=== PATIENT | male | born 1950 | race Caucasian/White ===

== ENCOUNTER 2020-04-27 15:31 | Inpatient (IN) ==
[2020-04-27] MEDS ORDERED: ZOFRAN INJ 4 MG VIAL IVP ONE (15:48)
[2020-04-27] MEDS ORDERED: ZOFRAN INJ 4 MG VIAL ONE (16:07)
[2020-04-27 16:41] LABS: BASOPHILS # (AUTO) 0.1 X10^3/uL (0.0-0.1); BASOPHILS % (AUTO) 0.8 % (0.2-1.0); EOSINOPHILS # (AUTO) 0.1 x10^3/uL (0.0-0.2); EOSINOPHILS % (AUTO) 1.4 % (0.9-2.9); HEMATOCRIT 31.1 % (42.0-54.0); HEMOGLOBIN 10.6 g/dL (13.5-18.0); LYMPHOCYTES # (AUTO) 0.8 X10^3/uL (1.3-2.9); LYMPHOCYTES % (AUTO) 11.3 % (21.0-51.0); MEAN CORPUSCULAR HEMOGLOBIN 28.1 pg (27.0-34.0); MEAN CORPUSCULAR HGB CONC 34.2 g/dL (33.0-35.0); MEAN CORPUSCULAR VOLUME 82.2 fL (80.0-100.0); MEAN PLATELET VOLUME 9.1 fL (7.4-11.0); MONOCYTES # (AUTO) 1.3 x10^3/uL (0.3-0.8); MONOCYTES % (AUTO) 19.5 % (0.0-13.0); NEUTROPHILS # (AUTO) 4.5 x10^3/uL (2.2-4.8); PLATELET COUNT 199 X10^3/uL (150.0-450.0); RED BLOOD COUNT 3.78 X10^6/uL (4.7-6.0); WHITE BLOOD COUNT 6.8 X10^3/uL (3.6-10.0)
[2020-04-27 16:59] LABS: LACTIC ACID 1.1 mmol/L (0.4-2.0)
[2020-04-27 17:01] LABS: ALANINE AMINOTRANSFERASE 40 Units/L (12-78); ALBUMIN 2.9 g/dL (3.4-5.0); ALKALINE PHOSPHATASE 80 Units/L (46-116); ASPARTATE AMINO TRANSFERASE 55 Units/L (15-37); BLOOD UREA NITROGEN 12 mg/dL (7-18); CALCIUM 8.7 mg/dL (8.5-10.1); CARBON DIOXIDE 28.3 mmol/L (21-32); CHLORIDE 82 mmol/L (98-107); CKMB % 1.4 % (<4); COR CA(FOR HYPOALB) 9.6 mg/dL (8.5-10.1); CREATINE KINASE 71 Units/L (39-308); CREATINE KINASE MB < 1.0 ng/mL (0-4.0); CREATININE 0.82 mg/dL (0.70-1.30); LIPASE 65 Units/L (73-393); MAGNESIUM 1.5 mg/dL (1.7-2.9); TOTAL PROTEIN 6.9 g/dL (6.4-8.2); TROPONIN I < 0.02 ng/mL (0-1.5); eGFR NON BLACK RACES > 60 (>60)
[2020-04-27 17:16] LABS: SODIUM 115 mmol/L (136-145)
[2020-04-27] MEDS ORDERED: MAGNESIUM SULFATE 1 GRAM/100 mL PREMIX 1 G/100 ML BAG IV ONE ×2 (17:49→17:59)
[2020-04-27] MEDS ORDERED: NS 1000 ML 1,000 ML ONE (17:58)
[2020-04-27] MEDS: NS 1000 ML 1,000 ML IV SCH (18:09)
--- NOTE | 2020-04-27 19:42 | DR.DIZZY ---
HPI Time seen Time Seen by Provider: 04/27/20 15:48 PCP Primary Care Physician: ANGELA HPI Comment HPI Comment: 3 days of weakness, nausea, and vomiting. Fell this AM on his right side, denies any pain. Denies any fever, chills, SHOB, cough, diarrhea, or any chest or abdominal pain. Complaint Chief Complaint:: PATIENT WAS BROUGHT INTO ED VIA [facility]. EMS STATED THAT THEY WAS CALLED OUT TO PATIENT DUE TO FALL AND WEAKNESS. PATIENT STATES THAT HE HAS HAD WEAKNESS X3 DAYS HAS HAD SOME N/V. PATIENT STATES THAT HE GOT UP FROM TABLE AND TRIPPED AND FELL. COVID-19 Coronavirus risk:travel/contact w/high risk person: No Has patient experienced Coronavirus symptoms: No Source History Provided: Patient Mode of Arrival Mode of Arrival: EMS Timing Onset of Chief Complaint: 04/27/20 Context Stroke Symptoms: None PMH PMH Past Medical History: Yes Past Medical History: Hypertension Past Medical History Comment: AFIB Past Surgical History: No Family History History of Family Medical Conditions: No Social History Alcohol Use: None Do you use any recreational Drugs:: No Travel Risk Coronavirus risk:travel/contact w/high risk person: No Has patient experienced Coronavirus symptoms: No Infectious screening Have you traveled outside the country in the last 6 months?: No Isolation: Standard ROS Review of Systems Constitutional: See HPI Eyes: No Symptoms Reported ENTM: No Symptoms Reported Respiratoy: No Symptoms Reported Cardiovascular: No Symptoms Reported Gastrointestinal/Abdominal: See HPI Genitourinary: No Symptoms Reported Neurological: No Symptoms Reported Musculoskeletal: No Symptoms Reported Integumentary: No Symptoms Reported Hematologic/Lymphatic: No Symptoms Reported Endocrine: No Symptoms Reported Psychiatric: No Symptoms Reported All Other Systems: Reviewed and Negative PE Vital Signs Vitals: Temperature 97.2 F Pulse Rate 67 Respiratory Rate 21 Blood Pressure 127/60 O2 Sat by Pulse Oximetry 97 General Limitations: No Limitations General Appearance: Alert and In No Apparent Distress Head Head Exam: Normal Inspection and Atraumatic Eyes Eye exam: Normal Appearance and PERRL ENT ENT Exam: Normal Exam, Normal Oropharynx and Normal External Ear Exam Neck Neck Exam: Normal Inspection and Full ROM; negative Tenderness Chest Chest Inspection: Normal Inspection Respiratory Respiratory Exam: Normal Lung Sounds Bilat Cardiovascular Cardiovascular Exam: Regular Rate and Normal Rhythm Abdominal Exam Abdominal Exam: Normal Inspection and Soft; negative Distention, Tenderness, Guarding, Rebound and Rigidity Rectal Rectal Exam: Deferred Extremeties Extremities Exam: Normal Inspection and Full ROM; negative Tenderness, Edema and Joint Swelling Back Back Exam: Normal Inspection and Full ROM Neurologic Neurological Exam: Alert, Oriented X3 and CN II-XII Intact; negative Motor Sensory Deficit Psychiatric Psychiatric Exam: Normal Affect and Normal Mood Skin Skin Exam: Warm, Dry, Intact and Normal Color COURSE Treatment Treatment: Rehydration/initial Na+ replacement resulted in some subjective weakness improvement. Findings concerning for severe hyponatremia, as well as hypomagnesemia. Hyperbilirubinemia nominal. Discussed case with Dr. Askew who agreed to admit. Reevaluation 1st: Improved ROR Labs Reviewed Laboratory Results Reviewed?: Yes Result Diagrams: 04/27/20 16:10 04/27/20 16:10 Laboratory: WBC 6.8 X10^3/uL (3.6-10.0) 04/27/20 16:10 RBC 3.78 X10^6/uL (4.7-6.0) L 04/27/20 16:10 Hgb 10.6 g/dL (13.5-18.0) L 04/27/20 16:10 Hct 31.1 % (42.0-54.0) L 04/27/20 16:10 MCV 82.2 fL (80.0-100.0) 04/27/20 16:10 MCH 28.1 pg (27.0-34.0) 04/27/20 16:10 MCHC 34.2 g/dL (33.0-35.0) 04/27/20 16:10 RDW 16.0 % (11.6-16.5) 04/27/20 16:10 Plt Count 199 X10^3/uL (150.0-450.0) 04/27/20 16:10 MPV 9.1 fL (7.4-11.0) 04/27/20 16:10 Neut % (Auto) 67.0 % (42.0-75.0) 04/27/20 16:10 Lymph % (Auto) 11.3 % (21.0-51.0) L 04/27/20 16:10 [place] % (Auto) 19.5 % (0.0-13.0) H 04/27/20 16:10 Eos % (Auto) 1.4 % (0.9-2.9) 04/27/20 16:10 Baso % (Auto) 0.8 % (0.2-1.0) 04/27/20 16:10 Neut # (Auto) 4.5 x10^3/uL (2.2-4.8) 04/27/20 16:10 Lymph # (Auto) 0.8 X10^3/uL (1.3-2.9) L 04/27/20 16:10 [place] # (Auto) 1.3 x10^3/uL (0.3-0.8) H 04/27/20 16:10 Eos # (Auto) 0.1 x10^3/uL (0.0-0.2) 04/27/20 16:10 Baso # (Auto) 0.1 X10^3/uL (0.0-0.1) 04/27/20 16:10 Absolute Nucleated RBC 0.0 /100WBC 04/27/20 16:10 Sodium 115 mmol/L (136-145) L* 04/27/20 16:10 Corrected Sodium TNP 04/27/20 16:10 Potassium 3.8 mmol/L (3.5-5.1) 04/27/20 16:10 Chloride 82 mmol/L (98-107) L 04/27/20 16:10 Carbon Dioxide 28.3 mmol/L (21-32) 04/27/20 16:10 BUN 12 mg/dL (7-18) 04/27/20 16:10 Creatinine 0.82 mg/dL (0.70-1.30) 04/27/20 16:10 Est GFR (MDRD) Af Amer > 60 (>60) 04/27/20 16:10 Est GFR (MDRD) Non-Af > 60 (>60) 04/27/20 16:10 Glucose 98 mg/dL (65-99) 04/27/20 16:10 Lactic Acid 1.1 mmol/L (0.4-2.0) 04/27/20 16:10 Calcium 8.7 mg/dL (8.5-10.1) 04/27/20 16:10 Corrected Calcium 9.6 mg/dL (8.5-10.1) 04/27/20 16:10 Magnesium 1.5 mg/dL (1.7-2.9) L 04/27/20 16:10 Total Bilirubin 1.10 mg/dL (0.2-1.0) H 04/27/20 16:10 AST 55 Units/L (15-37) H 04/27/20 16:10 ALT 40 Units/L (12-78) 04/27/20 16:10 Alkaline Phosphatase 80 Units/L (46-116) 04/27/20 16:10 Creatine Kinase 71 Units/L (39-308) 04/27/20 16:10 CK-MB (CK-2) < 1.0 ng/mL (0-4.0) 04/27/20 16:10 CK/CKMB % Calc 1.4 % (<4) 04/27/20 16:10 Troponin I < 0.02 ng/mL (0-1.5) 04/27/20 16:10 Total Protein 6.9 g/dL (6.4-8.2) 04/27/20 16:10 Albumin 2.9 g/dL (3.4-5.0) L 04/27/20 16:10 Globulin 4.0 g/dL (2.5-4.5) 04/27/20 16:10 Albumin/Globulin Ratio 0.7 Ratio (1.1-2.1) L 04/27/20 16:10 Lipase 65 Units/L (73-393) L 04/27/20 16:10 SARS-CoV-2 (PCR) Negative (NEGATIVE) 04/27/20 18:25 EKG [place]: Normal Rhythm: NSR Block: None Hypertrophy: None ST: Normal Opioid Opioid Risk Tool Age (Michael box if 16-45): No Total: 0 Total Score Risk Category: Low Risk Copyright: Rhodes LR predicting aberrant behaviors Diagnosis Discharge Problem: Acute hyponatremia, Hypomagnesemia, Weakness
[2020-04-27 21:00] VITALS: BMI 30.4
[2020-04-27] MEDS ORDERED: ZOFRAN INJ 4 MG VIAL IVP PRN (21:26)
[2020-04-27] MEDS ORDERED: NS 1000 ML 1,000 ML IV SCH (21:26)
[2020-04-27] MEDS ORDERED: ZYLOPRIM PO SCH (21:26)
[2020-04-27] MEDS: COREG TAB 12.5 MG PO SCH (22:51)
[2020-04-27] MEDS: ELIQUIS PO SCH (22:52)
[2020-04-28] MEDS: NS 1000 ML 1,000 ML IV SCH ×3 (02:23→18:03)
[2020-04-28 06:15] LABS: BASOPHILS # (AUTO) 0.1 X10^3/uL (0.0-0.1); BASOPHILS % (AUTO) 1.3 % (0.2-1.0); EOSINOPHILS # (AUTO) 0.1 x10^3/uL (0.0-0.2); EOSINOPHILS % (AUTO) 1.9 % (0.9-2.9); HEMATOCRIT 29.2 % (42.0-54.0); HEMOGLOBIN 10.2 g/dL (13.5-18.0); LYMPHOCYTES # (AUTO) 0.8 X10^3/uL (1.3-2.9); LYMPHOCYTES % (AUTO) 14.4 % (21.0-51.0); MEAN CORPUSCULAR HEMOGLOBIN 28.6 pg (27.0-34.0); MEAN CORPUSCULAR HGB CONC 35.1 g/dL (33.0-35.0); MEAN CORPUSCULAR VOLUME 81.5 fL (80.0-100.0); MEAN PLATELET VOLUME 8.8 fL (7.4-11.0); MONOCYTES # (AUTO) 1.1 x10^3/uL (0.3-0.8); MONOCYTES % (AUTO) 20.4 % (0.0-13.0); NEUTROPHILS # (AUTO) 3.4 x10^3/uL (2.2-4.8); PLATELET COUNT 175 X10^3/uL (150.0-450.0); RED BLOOD COUNT 3.58 X10^6/uL (4.7-6.0); RED CELL DISTRIBUTION WIDTH 16.4 % (11.6-16.5); WHITE BLOOD COUNT 5.5 X10^3/uL (3.6-10.0)
[2020-04-28 06:43] LABS: BAND NEUTROPHILS % 1 % (0-10)
[2020-04-28 06:44] LABS: PLATELET MORPHOLOGY COMMENT NORMAL (NORMAL)
[2020-04-28 06:45] LABS: ALANINE AMINOTRANSFERASE 35 Units/L (12-78); ALBUMIN 2.6 g/dL (3.4-5.0); ALKALINE PHOSPHATASE 72 Units/L (46-116); ASPARTATE AMINO TRANSFERASE 42 Units/L (15-37); BLOOD UREA NITROGEN 7 mg/dL (7-18); CALCIUM 8.2 mg/dL (8.5-10.1); CARBON DIOXIDE 27.1 mmol/L (21-32); CHLORIDE 86 mmol/L (98-107); COR CA(FOR HYPOALB) 9.3 mg/dL (8.5-10.1); CREATININE 0.65 mg/dL (0.70-1.30); MAGNESIUM 1.6 mg/dL (1.7-2.9); PHOSPHORUS 3.5 mg/dL (2.6-4.7); TOTAL PROTEIN 6.3 g/dL (6.4-8.2); eGFR NON BLACK RACES > 60 (>60)
[2020-04-28 06:48] LABS: SODIUM 118 mmol/L (136-145)
[2020-04-28] MEDS ORDERED: POTASSIUM CHL 60 MEQ/NS 0.45% 500 ML IV PRN (08:46)
[2020-04-28] MEDS ORDERED: MICRO K EXTEN CAP 10 MEQ PO PRN (08:46)
[2020-04-28] MEDS ORDERED: KLOR-CON PO PRN (08:46)
[2020-04-28] MEDS ORDERED: POTASSIUM CHL 40 MEQ/NS 0.45% 500 ML IV PRN (08:46)
[2020-04-28] MEDS ORDERED: K-RIDER 10 MEQ/NS 100 ML 10 MEQ/100 ML BAG IV PRN (08:46)
[2020-04-28] MEDS ORDERED: POTASSIUM CHLORIDE LIQ 20 MEQ UDC PO PRN (08:46)
[2020-04-28] MEDS ORDERED: CHLORTHALIDONE PO SCH (09:00)
[2020-04-28] MEDS: ELIQUIS PO SCH ×2 (09:31→21:09)
[2020-04-28] MEDS: ZYLOPRIM PO SCH (09:31)
[2020-04-28] MEDS: SYNTHROID 75 mcg TAB PO SCH (09:31)
[2020-04-28] MEDS: COREG TAB 12.5 MG PO SCH ×2 (09:32→21:08)
[2020-04-28] MEDS: K-DUR TAB 20 MEQ PO PRN ×2 (09:32→18:08)
--- NOTE | 2020-04-28 10:30 | DR.H&P ---
H&P - History & Physical for Day of: H&P Date: 04/28/20 - Chief Complaint Chief Complaint: WEAKNESS, NAUSEA, VOMITING, FREQUENT FALLS - History of Present Illness History of Present Illness: IS A 69 YEAR OLD WHITE MALE WHO PRESENTED TO THE ER WITH COMPLAINTS OF FREQUENT FALLS AT HOME AND WEAKENSS. PATEINT REPORTS THAT HE HAS HAD WEAKNESS, NAUSEA, AND VOMITING X 3 DAYS. HE REPORTS FALLING AT HOME THIS MORNING AND LANDING ON HIS RIGHT SIDE. HE DENIES LOSS OF CONSCIOUSNESS. HE DENIES PAIN. PMH INCLUDES HTN AND ARIAL FIBRILLATION. ON ARRIVAL TO THE HOSPITAL, VITALS WERE 98.7-79-18-98%-103/57. LABS WERE OBTAINED. ABNORMAL LAB VALUES INCLUDE THE FOLLOWING: RBC 3.78, HGB 10.6, HCT 31.1, SODIUM 115, CHLORIDE 82, MAGNESIUM 1.5, TOTAL BILI 1.10, AST 55, ALBUMIN 2.9. AM LABS REVEALED SODIUM 118, POTASSIUM 2.9. COVID-19 NEGATIVE. EKG REVEALED: ATRIAL FIBRILLATION WITH HR 62. HE WAS GIVEN ZOFRAN 4MG IV X 1 AND MAGNESIUM 1G IV X 1 IN THE ER. HE WAS ADMITTED FOR FURTHER EVALUATION AND TREATMENT OF SEVERE HYPONATREMIA, NYPOMAGNESEMIA, AND HYPOKALEMIA. HE WAS STARTED ON NORMAL SALINE AT 125M,L/HR, THE POTASSIUM AND MAGNESIUM PROTOCOLS, ZOFRAN 4MG IV Q6H PRN, SYNTHROID 75MCG PO DAILY, COREG 12.5MG PO BID, ELIQUIS 5MG PO BID, AND AL LOPURINOL 300MG PO DAILY. OTHERWISE, WE PLAN TO FOLLOW UP WITH AM LABS AND CONTINUE TO MONITOR. - Past Medical History Past Medical History: Hypertension Additional Medical History: A-FIB - Past Surgical History Surgical History: Ortho Surgery - Social History Alcohol Use: None Drug Use: None - Medications Home Medications: No Known Drug Allergies Allergy (Verified 04/27/20 16:14) CONTINUE taking the following medications allopurinol 300 mg PO BID 04/27/20 [History] apixaban [Eliquis] 5 mg PO BID 04/27/20 [History] carvedilol 12.5 mg PO BID 04/27/20 [History] chlorthalidone 25 mg PO DAILY 04/27/20 [History] levothyroxine [Euthyrox] 75 mcg PO DAILY 04/27/20 [History] meloxicam 15 mg PO DAILY 04/27/20 [History] - Review of Systems Constitutional: Weakness Eyes: No Symptoms Reported ENT: No Symptoms Reported Respiratory: No Symptoms Reported Cardiovascular: Light Headedness Gastrointestinal: See HPI, Nausea, Vomiting, Abdominal Pain Genitourinary: No Symptoms Reported Musculoskeletal: No Symptoms Reported Skin: No Symptoms Reported Neurological: Weakness - Physical Exam Vital Signs: Temperature 98.7 F Pulse Rate [Apical] 56 Pulse Rate 67 Respiratory Rate 20 Blood Pressure [Right Arm] 107/60 Blood Pressure 127/60 O2 Sat by Pulse Oximetry 97 Oriented: Normal Eyes: Normal Ear: Normal Nose: Normal Throat: Normal Respiratory: Diminished Throughout Cardiovascular: Normal : Normal Auscultation: Bowel Sounds: Normal Palpation: Normal Tenderness: Normal Skin: Normal Musculoskeletal: Normal Psychiatric: Normal Mood Description: Calm Affect: Normal Speech Pattern: Clear - Assessment/Plan (1) Acute hyponatremia Status: Acute Plan: ADMIT, NORMAL SALINE AT 125ML/HR, THE POTASSIUM AND MAGNESIUM PROTOCOLS, ZOFRAN 4MG IV Q6H PRN, SYNTHROID 75MCG PO DAILY, COREG 12.5MG PO BID, ELIQUIS 5MG PO BID, AND ALLOPURINOL 300MG PO DAILY. (2) Hypokalemia Status: Acute (3) Hypomagnesemia Status: Acute (4) Weakness Status: Acute - Allergies Allergies/Adverse Reactions: Allergies Allergy/AdvReac Type Severity Reaction Status Date / Time No Known Drug Allergies Allergy Verified 04/27/20 16:14
[2020-04-28] MEDS: MAGNESIUM SULFATE 1 GRAM/100 mL PREMIX 1 GM/100 ML BAG IV PRN ×2 (18:08→21:09)
[2020-04-29] MEDS: NS 1000 ML 1,000 ML IV SCH ×5 (01:30→19:00)
[2020-04-29 06:10] LABS: BASOPHILS % (AUTO) 0.9 % (0.2-1.0); EOSINOPHILS # (AUTO) 0.1 x10^3/uL (0.0-0.2); EOSINOPHILS % (AUTO) 1.5 % (0.9-2.9); HEMATOCRIT 29.1 % (42.0-54.0); LYMPHOCYTES # (AUTO) 0.8 X10^3/uL (1.3-2.9); LYMPHOCYTES % (AUTO) 14.3 % (21.0-51.0); MEAN CORPUSCULAR HEMOGLOBIN 28.6 pg (27.0-34.0); MEAN CORPUSCULAR HGB CONC 34.5 g/dL (33.0-35.0); MEAN CORPUSCULAR VOLUME 82.9 fL (80.0-100.0); MEAN PLATELET VOLUME 9.2 fL (7.4-11.0); MONOCYTES # (AUTO) 1.3 x10^3/uL (0.3-0.8); MONOCYTES % (AUTO) 24.3 % (0.0-13.0); NEUTROPHILS # (AUTO) 3.2 x10^3/uL (2.2-4.8); PLATELET COUNT 167 X10^3/uL (150.0-450.0); RED BLOOD COUNT 3.51 X10^6/uL (4.7-6.0); RED CELL DISTRIBUTION WIDTH 16.3 % (11.6-16.5); WHITE BLOOD COUNT 5.4 X10^3/uL (3.6-10.0)
[2020-04-29 06:25] LABS: ALANINE AMINOTRANSFERASE 46 Units/L (12-78); ALBUMIN 2.4 g/dL (3.4-5.0); ALKALINE PHOSPHATASE 73 Units/L (46-116); ASPARTATE AMINO TRANSFERASE 54 Units/L (15-37); BLOOD UREA NITROGEN 8 mg/dL (7-18); CARBON DIOXIDE 26.5 mmol/L (21-32); CHLORIDE 93 mmol/L (98-107); COR CA(FOR HYPOALB) 9.3 mg/dL (8.5-10.1); CREATININE 0.62 mg/dL (0.70-1.30); MAGNESIUM 1.7 mg/dL (1.7-2.9); eGFR NON BLACK RACES > 60 (>60)
[2020-04-29 06:27] LABS: SODIUM 124 mmol/L (136-145)
[2020-04-29 06:41] LABS: PLATELET MORPHOLOGY COMMENT NORMAL (NORMAL)
[2020-04-29] MEDS: SYNTHROID 75 mcg TAB PO SCH (09:13)
[2020-04-29] MEDS: ELIQUIS PO SCH ×2 (09:13→20:47)
[2020-04-29] MEDS: ZYLOPRIM PO SCH (09:14)
[2020-04-29] MEDS: COREG TAB 12.5 MG PO SCH ×2 (09:14→20:48)
[2020-04-29] MEDS: MAGNESIUM SULFATE 1 GRAM/100 mL PREMIX 1 GM/100 ML BAG IV PRN (10:50)
[2020-04-29] MEDS: COLACE CAP 100 MG PO SCH ×2 (10:50→20:47)
[2020-04-29] MEDS: MILK OF MAGNESIA PO SCH ×4 (10:50→21:00)
[2020-04-30] MEDS: NS 1000 ML 1,000 ML IV SCH ×4 (02:38→22:10)
[2020-04-30 06:08] LABS: BASOPHILS # (AUTO) 0.1 X10^3/uL (0.0-0.1); BASOPHILS % (AUTO) 0.9 % (0.2-1.0); EOSINOPHILS # (AUTO) 0.1 x10^3/uL (0.0-0.2); EOSINOPHILS % (AUTO) 1.7 % (0.9-2.9); HEMATOCRIT 27.8 % (42.0-54.0); HEMOGLOBIN 9.5 g/dL (13.5-18.0); LYMPHOCYTES # (AUTO) 0.8 X10^3/uL (1.3-2.9); LYMPHOCYTES % (AUTO) 14.1 % (21.0-51.0); MEAN CORPUSCULAR HEMOGLOBIN 28.3 pg (27.0-34.0); MEAN CORPUSCULAR HGB CONC 34.1 g/dL (33.0-35.0); MEAN CORPUSCULAR VOLUME 82.9 fL (80.0-100.0); MEAN PLATELET VOLUME 8.9 fL (7.4-11.0); MONOCYTES # (AUTO) 1.3 x10^3/uL (0.3-0.8); MONOCYTES % (AUTO) 21.2 % (0.0-13.0); NEUTROPHILS # (AUTO) 3.7 x10^3/uL (2.2-4.8); NEUTROPHILS % (AUTO) 62.1 % (42.0-75.0); PLATELET COUNT 158 X10^3/uL (150.0-450.0); RED BLOOD COUNT 3.36 X10^6/uL (4.7-6.0); RED CELL DISTRIBUTION WIDTH 16.7 % (11.6-16.5)
[2020-04-30 06:29] LABS: ALANINE AMINOTRANSFERASE 46 Units/L (12-78); ALBUMIN 2.4 g/dL (3.4-5.0); ALKALINE PHOSPHATASE 69 Units/L (46-116); ASPARTATE AMINO TRANSFERASE 54 Units/L (15-37); BLOOD UREA NITROGEN 8 mg/dL (7-18); CARBON DIOXIDE 26.6 mmol/L (21-32); CHLORIDE 92 mmol/L (98-107); COR CA(FOR HYPOALB) 9.3 mg/dL (8.5-10.1); CREATININE 0.65 mg/dL (0.70-1.30); MAGNESIUM 1.7 mg/dL (1.7-2.9); TOTAL PROTEIN 5.9 g/dL (6.4-8.2); eGFR NON BLACK RACES > 60 (>60)
[2020-04-30 06:32] LABS: SODIUM 123 mmol/L (136-145)
[2020-04-30 06:33] LABS: PLATELET MORPHOLOGY COMMENT NORMAL (NORMAL)
[2020-04-30] MEDS: MAGNESIUM SULFATE 1 GRAM/100 mL PREMIX 1 GM/100 ML BAG IV PRN (09:27)
[2020-04-30] MEDS: ELIQUIS PO SCH ×2 (09:28→21:56)
[2020-04-30] MEDS: COLACE CAP 100 MG PO SCH ×2 (09:28→21:54)
[2020-04-30] MEDS: COREG TAB 12.5 MG PO SCH ×2 (09:28→21:55)
[2020-04-30] MEDS: SYNTHROID 75 mcg TAB PO SCH (09:28)
[2020-04-30] MEDS: ZYLOPRIM PO SCH (09:29)
[2020-04-30] MEDS: MILK OF MAGNESIA PO SCH ×3 (09:30→21:56)
[2020-04-30] MEDS ORDERED: NS 1000 ML 1,000 ML IV ONE (10:33)
--- NOTE | 2020-04-30 20:49 | PCM.PROG ---
Progress Note - Progress Note for Day of Date of Exam: 04/29/20 - Subjective Subjective: IS BEING TREATED FOR ACUTE HYPONATREMIA, HYPOKALEMIA, HYPOMAGNESEMIA, AND WEAKNESS. TODAY, HE IS ALERT AND ORIENTED, LYING IN BED ON MORNING ROUNDS. HE CONTINUES WITH COMPLAINTS OF WEAKNESS TODAY, BUT REPORTS SLIGHT IMPROVEMENT. HE DENIES A BOWEL MOVEMENT IN SEVERAL DAYS. ON EXAMINATION, HEART IS REGULAR IN RATE AND RHYTHM. BILATERAL LUNGS ARE NOTED WITH DIMINISHED LUNG SOUNDS THROUGHOUT. ABDOMEN IS ROUND, SOFT, AND NON-TENDER WITH NORMAL BOWEL SOUNDS NOTED IN ALL QUADRANTS. HIS VITALS THIS MORNING ARE: 97.8-76-20-96%-123/58. LABS WERE OBTAINED. ABNORMAL LAB VALUES INCLUDE THE FOLLOWING: RBC 3.51, HGB 10.0, HCT 29.1, SODIUM 124, CHLORIDE 93, CREATININE 0.62, CALCIUM 8.0, AST 54, TOTAL PROTEIN 6.0, ALBUMIN 2.4. HE IS CURRENTLY RECEIVING NORMAL SALINE AT 125ML/HR, THE POTASSIUM AND MAGNESIUM PROTOCOLS, ZOFRAN 4MG IV Q6H PRN, SYNTHROID 75MCG PO DAILY, COREG 12.5MG PO BID, ELIQUIS 5MG PO BID, AND ALLOPURINOL 300MG PO DAILY. WE WILL CONTINUE WITH CURRENT PLAN OF CARE TODAY. OTHERWISE, WE PLAN TO FOLLOW UP WITH AM LABS AND CONTINUE TO MONITOR. - Past Medical Family Social History Past Med/Fam/Surg Hx: No changes since H&P Allergies: Allergies No Known Drug Allergies Allergy (Verified 04/27/20 16:14) - Review of Systems ROS: No change since H&P - Vital Signs and I&O's Vital Signs: Temperature 98.6 F Pulse Rate [Apical] 74 Pulse Rate 67 Respiratory Rate 20 Blood Pressure [Right Arm] 127/60 Blood Pressure 127/60 O2 Sat by Pulse Oximetry 97 Intake and Output: Intake & Output 04/28/20 04/29/20 04/30/20 05/01/20 11:59 11:59 11:59 11:59 Intake Total 1371 / 1371 3425 / 3425 4993 / 4993 720 / 720 Output Total 1650 / 1650 3325 / 3325 3175 / 3175 1150 / 1150 Balance -279 / -279 100 / 100 1818 / 1818 -430 / -430 - Physical Exam Oriented: Normal Eyes: Normal Ear: Normal Nose: Normal Throat: Normal Respiratory: Generalized, Diminished Cardiovascular: Normal : Normal Auscultation: Bowel Sounds: Normal Palpation: Normal Tenderness: Normal Skin: Normal Musculoskeletal: Normal Psychiatric: Normal Mood Description: Calm Affect: Normal Speech Pattern: Clear, Appropriate - Laboratory and Diagnostics Result Diagrams: 04/30/20 05:05 04/30/20 05:05 Labs: Laboratory WBC 6.0 X10^3/uL (3.6-10.0) 04/30/20 05:05 RBC 3.36 X10^6/uL (4.7-6.0) L 04/30/20 05:05 Hgb 9.5 g/dL (13.5-18.0) L 04/30/20 05:05 Hct 27.8 % (42.0-54.0) L 04/30/20 05:05 MCV 82.9 fL (80.0-100.0) 04/30/20 05:05 MCH 28.3 pg (27.0-34.0) 04/30/20 05:05 MCHC 34.1 g/dL (33.0-35.0) 04/30/20 05:05 RDW 16.7 % (11.6-16.5) H 04/30/20 05:05 Plt Count 158 X10^3/uL (150.0-450.0) 04/30/20 05:05 Plt Count Comment Adequate (ADEQUATE) 04/30/20 05:05 MPV 8.9 fL (7.4-11.0) 04/30/20 05:05 Neut % (Auto) 62.1 % (42.0-75.0) 04/30/20 05:05 Lymph % (Auto) 14.1 % (21.0-51.0) L 04/30/20 05:05 [place] % (Auto) 21.2 % (0.0-13.0) H 04/30/20 05:05 Eos % (Auto) 1.7 % (0.9-2.9) 04/30/20 05:05 Baso % (Auto) 0.9 % (0.2-1.0) 04/30/20 05:05 Neut # (Auto) 3.7 x10^3/uL (2.2-4.8) 04/30/20 05:05 Lymph # (Auto) 0.8 X10^3/uL (1.3-2.9) L 04/30/20 05:05 [place] # (Auto) 1.3 x10^3/uL (0.3-0.8) H 04/30/20 05:05 Eos # (Auto) 0.1 x10^3/uL (0.0-0.2) 04/30/20 05:05 Baso # (Auto) 0.1 X10^3/uL (0.0-0.1) 04/30/20 05:05 Absolute Nucleated RBC 0.0 /100WBC 04/30/20 05:05 Total Counted 100 04/30/20 05:05 Neutrophils % (Manual) 64 % (39-76) 04/30/20 05:05 Band Neutrophils % 1 % (0-10) 04/28/20 05:15 Lymphocytes % (Manual) 20 % (13-43) 04/30/20 05:05 Monocytes % (Manual) 16 % (4-9) H 04/30/20 05:05 Plt Morphology Comment Normal (NORMAL) 04/30/20 05:05 RBC Morphology Normal (NORMAL) 04/30/20 05:05 Sodium 123 mmol/L (136-145) L* 04/30/20 05:05 Corrected Sodium TNP 04/30/20 05:05 Potassium 3.7 mmol/L (3.5-5.1) 04/30/20 05:05 Chloride 92 mmol/L (98-107) L 04/30/20 05:05 Carbon Dioxide 26.6 mmol/L (21-32) 04/30/20 05:05 BUN 8 mg/dL (7-18) 04/30/20 05:05 Creatinine 0.65 mg/dL (0.70-1.30) L 04/30/20 05:05 Est GFR (MDRD) Af Amer > 60 (>60) 04/30/20 05:05 Est GFR (MDRD) Non-Af > 60 (>60) 04/30/20 05:05 Glucose 87 mg/dL (65-99) 04/30/20 05:05 Lactic Acid 1.1 mmol/L (0.4-2.0) 04/27/20 16:10 Calcium 8.0 mg/dL (8.5-10.1) L 04/30/20 05:05 Corrected Calcium 9.3 mg/dL (8.5-10.1) 04/30/20 05:05 Phosphorus 3.5 mg/dL (2.6-4.7) 04/28/20 05:15 Magnesium 1.7 mg/dL (1.7-2.9) 04/30/20 05:05 Total Bilirubin 0.70 mg/dL (0.2-1.0) 04/30/20 05:05 AST 54 Units/L (15-37) H 04/30/20 05:05 ALT 46 Units/L (12-78) 04/30/20 05:05 Alkaline Phosphatase 69 Units/L (46-116) 04/30/20 05:05 Creatine Kinase 71 Units/L (39-308) 04/27/20 16:10 CK-MB (CK-2) < 1.0 ng/mL (0-4.0) 04/27/20 16:10 CK/CKMB % Calc 1.4 % (<4) 04/27/20 16:10 Troponin I < 0.02 ng/mL (0-1.5) 04/27/20 16:10 Total Protein 5.9 g/dL (6.4-8.2) L 04/30/20 05:05 Albumin 2.4 g/dL (3.4-5.0) L 04/30/20 05:05 Globulin 3.5 g/dL (2.5-4.5) 04/30/20 05:05 Albumin/Globulin Ratio 0.7 Ratio (1.1-2.1) L 04/30/20 05:05 Lipase 65 Units/L (73-393) L 04/27/20 16:10 SARS-CoV-2 (PCR) Negative (NEGATIVE) 04/27/20 18:25 - Plan (1) Acute hyponatremia Status: Acute Plan: NORMAL SALINE AT 125ML/HR, THE POTASSIUM AND MAGNESIUM PROTOCOLS, ZOFRAN 4MG IV Q6H PRN, SYNTHROID 75MCG PO DAILY, COREG 12.5MG PO BID, ELIQUIS 5MG PO BID, AND ALLOPURINOL 300MG PO DAILY. (2) Hypokalemia Status: Acute (3) Hypomagnesemia Status: Acute (4) Weakness Status: Acute
[2020-04-30] MEDS ORDERED: MIRALAX POWDER (1 DOSE 17 G) PO SCH (21:00)
[2020-05-01] MEDS: NS 1000 ML 1,000 ML IV SCH (02:06)
[2020-05-01 05:20] LABS: BASOPHILS % (AUTO) 0.8 % (0.2-1.0); EOSINOPHILS # (AUTO) 0.1 x10^3/uL (0.0-0.2); EOSINOPHILS % (AUTO) 1.8 % (0.9-2.9); HEMATOCRIT 26.5 % (42.0-54.0); LYMPHOCYTES # (AUTO) 0.8 X10^3/uL (1.3-2.9); MEAN CORPUSCULAR HEMOGLOBIN 28.5 pg (27.0-34.0); MEAN CORPUSCULAR VOLUME 83.8 fL (80.0-100.0); MEAN PLATELET VOLUME 9.2 fL (7.4-11.0); MONOCYTES # (AUTO) 1.2 x10^3/uL (0.3-0.8); MONOCYTES % (AUTO) 19.6 % (0.0-13.0); NEUTROPHILS % (AUTO) 64.8 % (42.0-75.0); PLATELET COUNT 152 X10^3/uL (150.0-450.0); RED BLOOD COUNT 3.17 X10^6/uL (4.7-6.0); RED CELL DISTRIBUTION WIDTH 16.4 % (11.6-16.5); WHITE BLOOD COUNT 6.2 X10^3/uL (3.6-10.0)
[2020-05-01 05:30] LABS: ALANINE AMINOTRANSFERASE 45 Units/L (12-78); ALBUMIN 2.3 g/dL (3.4-5.0); ALKALINE PHOSPHATASE 68 Units/L (46-116); ASPARTATE AMINO TRANSFERASE 36 Units/L (15-37); BLOOD UREA NITROGEN 7 mg/dL (7-18); CARBON DIOXIDE 28.3 mmol/L (21-32); CHLORIDE 93 mmol/L (98-107); COR CA(FOR HYPOALB) 9.4 mg/dL (8.5-10.1); CREATININE 0.61 mg/dL (0.70-1.30); MAGNESIUM 1.7 mg/dL (1.7-2.9); SODIUM 127 mmol/L (136-145); TOTAL PROTEIN 5.7 g/dL (6.4-8.2); eGFR NON BLACK RACES > 60 (>60)
[2020-05-01] MEDS: MAGNESIUM SULFATE 1 GRAM/100 mL PREMIX 1 GM/100 ML BAG IV PRN (06:44)
[2020-05-01 08:27] VITALS: BP 134/64
[2020-05-01] MEDS: COLACE CAP 100 MG PO SCH (09:02)
[2020-05-01] MEDS: ELIQUIS PO SCH (09:02)
[2020-05-01] MEDS: SYNTHROID 75 mcg TAB PO SCH (09:02)
[2020-05-01] MEDS: COREG TAB 12.5 MG PO SCH (09:02)
[2020-05-01] MEDS: ZYLOPRIM PO SCH (09:03)
[2020-05-01] MEDS: MILK OF MAGNESIA PO SCH (09:03)
--- NOTE | 2020-05-01 10:00 | PCM.PROG ---
Progress Note - Progress Note for Day of Date of Exam: 04/30/20 - Subjective Subjective: IS BEING TREATED FOR ACUTE HYPONATREMIA, HYPOKALEMIA, HYPOMAGNESEMIA, AND WEAKNESS. TODAY, HE IS ALERT AND ORIENTED, LYING IN BED ON MORNING ROUNDS. HE CONTINUES WITH COMPLAINTS OF WEAKNESS TODAY, BUT REPORTS SLIGHT IMPROVEMENT. HE CONTINUES TO DENY A BOWEL MOVEMENT. ON EXAMINATION, HEART IS REGULAR IN RATE AND RHYTHM. BILATERAL LUNGS ARE NOTED WITH DIMINISHED LUNG SOUNDS THROUGHOUT. ABDOMEN IS ROUND, SOFT, AND NON-TENDER WITH NORMAL BOWEL SOUNDS NOTED IN ALL QUADRANTS. HIS VITALS THIS MORNING ARE: 97.8-64-18-94%-121/57. LABS WERE OBTAINED. ABNORMAL LAB VALUES INCLUDE THE FOLL OWING: RBC 3.36, HGB 9.5, HCT 27.8, SODIUM 123, CHLORIDE 92, CREATININE 0.65, CALCIUM 8.0, AST 54, TOTAL PROTEIN 5.9, ALBUMIN 2.4. HE IS CURRENTLY RECEIVING NORMAL SALINE AT 125ML/HR, THE POTASSIUM AND MAGNESIUM PROTOCOLS, ZOFRAN 4MG IV Q6H PRN, SYNTHROID 75MCG PO DAILY, COREG 12.5MG PO BID, ELIQUIS 5MG PO BID, AND ALLOPURINOL 300MG PO DAILY. WE WILL CONTINUE WITH CURRENT PLAN OF CARE TODAY AND BOLUS ONE LITER OF NORMAL SALINE. OTHERWISE, WE PLAN TO FOLLOW UP WITH AM LABS AND CONTINUE TO MONITOR. - Past Medical Family Social History Past Med/Fam/Surg Hx: No changes since H&P Allergies: Allergies No Known Drug Allergies Allergy (Verified 04/27/20 16:14) - Review of Systems ROS: No change since H&P - Vital Signs and I&O's Vital Signs: Temperature 97.8 F Pulse Rate [Apical] 90 Pulse Rate 67 Respiratory Rate 18 Blood Pressure [Left Arm] 134/64 Blood Pressure [Right Arm] 126/62 Blood Pressure 127/60 O2 Sat by Pulse Oximetry 95 Intake and Output: Intake & Output 04/28/20 04/29/20 04/30/20 05/01/20 11:59 11:59 11:59 11:59 Intake Total 1371 / 1371 3425 / 3425 4993 / 4993 3960 / 3960 Output Total 1650 / 1650 3325 / 3325 3175 / 3175 2024 Balance -279 / -279 100 / 100 1818 / 1818 193 / 1934 - Physical Exam Oriented: Normal Eyes: Normal Ear: Normal Nose: Normal Throat: Normal Respiratory: Generalized, Diminished Cardiovascular: Normal : Normal Auscultation: Bowel Sounds: Normal Palpation: Normal Tenderness: Normal Skin: Normal Musculoskeletal: Normal Psychiatric: Normal Mood Description: Calm Affect: Normal Speech Pattern: Clear, Appropriate - Laboratory and Diagnostics Result Diagrams: 05/01/20 04:25 05/01/20 04:25 Labs: Laboratory WBC 6.2 X10^3/uL (3.6-10.0) 05/01/20 04:25 RBC 3.17 X10^6/uL (4.7-6.0) L 05/01/20 04:25 Hgb 9.0 g/dL (13.5-18.0) L 05/01/20 04:25 Hct 26.5 % (42.0-54.0) L 05/01/20 04:25 MCV 83.8 fL (80.0-100.0) 05/01/20 04:25 MCH 28.5 pg (27.0-34.0) 05/01/20 04:25 MCHC 34.0 g/dL (33.0-35.0) 05/01/20 04:25 RDW 16.4 % (11.6-16.5) 05/01/20 04:25 Plt Count 152 X10^3/uL (150.0-450.0) 05/01/20 04:25 Plt Count Comment Adequate (ADEQUATE) 04/30/20 05:05 MPV 9.2 fL (7.4-11.0) 05/01/20 04:25 Neut % (Auto) 64.8 % (42.0-75.0) 05/01/20 04:25 Lymph % (Auto) 13.0 % (21.0-51.0) L 05/01/20 04:25 [place] % (Auto) 19.6 % (0.0-13.0) H 05/01/20 04:25 Eos % (Auto) 1.8 % (0.9-2.9) 05/01/20 04:25 Baso % (Auto) 0.8 % (0.2-1.0) 05/01/20 04:25 Neut # (Auto) 4.0 x10^3/uL (2.2-4.8) 05/01/20 04:25 Lymph # (Auto) 0.8 X10^3/uL (1.3-2.9) L 05/01/20 04:25 [place] # (Auto) 1.2 x10^3/uL (0.3-0.8) H 05/01/20 04:25 Eos # (Auto) 0.1 x10^3/uL (0.0-0.2) 05/01/20 04:25 Baso # (Auto) 0.0 X10^3/uL (0.0-0.1) 05/01/20 04:25 Absolute Nucleated RBC 0.0 /100WBC 05/01/20 04:25 Total Counted 100 04/30/20 05:05 Neutrophils % (Manual) 64 % (39-76) 04/30/20 05:05 Band Neutrophils % 1 % (0-10) 04/28/20 05:15 Lymphocytes % (Manual) 20 % (13-43) 04/30/20 05:05 Monocytes % (Manual) 16 % (4-9) H 04/30/20 05:05 Plt Morphology Comment Normal (NORMAL) 04/30/20 05:05 RBC Morphology Normal (NORMAL) 04/30/20 05:05 Sodium 127 mmol/L (136-145) L 05/01/20 04:25 Corrected Sodium TNP 05/01/20 04:25 Potassium 3.9 mmol/L (3.5-5.1) 05/01/20 04:25 Chloride 93 mmol/L (98-107) L 05/01/20 04:25 Carbon Dioxide 28.3 mmol/L (21-32) 05/01/20 04:25 BUN 7 mg/dL (7-18) 05/01/20 04:25 Creatinine 0.61 mg/dL (0.70-1.30) L 05/01/20 04:25 Est GFR (MDRD) Af Amer > 60 (>60) 05/01/20 04:25 Est GFR (MDRD) Non-Af > 60 (>60) 05/01/20 04:25 Glucose 88 mg/dL (65-99) 05/01/20 04:25 Lactic Acid 1.1 mmol/L (0.4-2.0) 04/27/20 16:10 Calcium 8.0 mg/dL (8.5-10.1) L 05/01/20 04:25 Corrected Calcium 9.4 mg/dL (8.5-10.1) 05/01/20 04:25 Phosphorus 3.5 mg/dL (2.6-4.7) 04/28/20 05:15 Magnesium 1.7 mg/dL (1.7-2.9) 05/01/20 04:25 Total Bilirubin 0.90 mg/dL (0.2-1.0) 05/01/20 04:25 AST 36 Units/L (15-37) 05/01/20 04:25 ALT 45 Units/L (12-78) 05/01/20 04:25 Alkaline Phosphatase 68 Units/L (46-116) 05/01/20 04:25 Creatine Kinase 71 Units/L (39-308) 04/27/20 16:10 CK-MB (CK-2) < 1.0 ng/mL (0-4.0) 04/27/20 16:10 CK/CKMB % Calc 1.4 % (<4) 04/27/20 16:10 Troponin I < 0.02 ng/mL (0-1.5) 04/27/20 16:10 Total Protein 5.7 g/dL (6.4-8.2) L 05/01/20 04:25 Albumin 2.3 g/dL (3.4-5.0) L 05/01/20 04:25 Globulin 3.4 g/dL (2.5-4.5) 05/01/20 04:25 Albumin/Globulin Ratio 0.7 Ratio (1.1-2.1) L 05/01/20 04:25 Lipase 65 Units/L (73-393) L 04/27/20 16:10 SARS-CoV-2 (PCR) Negative (NEGATIVE) 04/27/20 18:25 - Plan (1) Acute hyponatremia Status: Acute Plan: NORMAL SALINE BOLUS, THEN NORMAL SALINE AT 125ML/HR, THE POTASSIUM AND MAGNESIUM PROTOCOLS, ZOFRAN 4MG IV Q6H PRN, SYNTHROID 75MCG PO DAILY, COREG 12.5MG PO BID, ELIQUIS 5MG PO BID, AND ALLOPURINOL 300MG PO DAILY. (2) Hypokalemia Status: Acute (3) Hypomagnesemia Status: Acute (4) Weakness Status: Acute
== END 2020-05-01 11:55 | disposition home or self-care (01) | DRG 641 ==
LOC: EDSEX → ER 15:31 → MED/SURG 19:51
PROVIDERS: ADMIT Internal Medicine; ATTEND Internal Medicine
DX: I10 Essential (primary) hypertension; I48.91 Unspecified atrial fibrillation; E87.1 Hypo-osmolality and hyponatremia; Z11.59 Encounter for screening for other viral diseases; R53.1 Weakness; E87.6 Hypokalemia
CPT/HCPCS: 36415; 80053; 82550; 82553; 83605; 83690; 83735; 84100; 84132; 84484; 85025; 87635; 93005; 96365; 96367; 97110; 97116; 97161; 99284; A4222; J2405; J3475; J7030